=== PATIENT | male | born 1945 | race Caucasian/White ===

== ENCOUNTER 2021-05-27 17:48 | Emergency (ER) | payer MEDICARE ==
[2021-05-27 17:58] VITALS: RESP 18; TEMP 97.9
[2021-05-27] MEDS ORDERED: SODIUM CHLORIDE 0.9% 1,000 ML IV STA (18:52)
[2021-05-27 19:30] LABS: Basophils # (A) 0.1 k/uL (0-0.2); Basophils % (A) 1 %; Eosinophils # (A) 0.2 k/uL (0-0.7); Eosinophils % (A) 2 %; HCT 41.6 % (39.0-53.0); Lymphocytes # (A) 1.6 k/uL (1.0-4.8); Lymphocytes % (A) 19 %; MCH 29.3 pg (25.0-35.0); MCHC 33.6 g/dL (31.0-37.0); MCV 87.2 fL (80.0-100.0); Mean Platelet Volume 7.3; Monocytes # (A) 0.6 k/uL (0-1.0); Monocytes % (A) 7 %; Neutrophils # (A) 5.9 k/uL (1.3-7.7); Neutrophils % (A) 70 %; Platelet Count 277 k/uL (150-450); RBC 4.76 m/uL (4.30-5.90); WBC 8.3 k/uL (3.8-10.6)
[2021-05-27] MEDS ORDERED: METOCLOPRAMIDE 5 MG/ML 2 ML VIAL IVP STA (19:41)
[2021-05-27] MEDS ORDERED: MAG HYDROX/AL HYDROX/SIMETH 30 ML, HYOSCYAMINE ELIXIR 10 ML PO STA ×2 (19:41)
--- NOTE | 2021-05-27 20:16 | CT ---
EXAMINATION TYPE: CT abdomen pelvis wo con DATE OF EXAM: 05/27/2021 COMPARISON: 10/07/2014. HISTORY: Abdominal pain. CT DLP: 932.2 mGycm Automated exposure control for dose reduction was used. TECHNIQUE: Helical acquisition of images was performed from the lung bases through the pelvis. FINDINGS: LUNG BASES: Mild bibasilar opacities, compatible with atelectasis. LIVER/GB: No significant abnormality is appreciated. Cholecystectomy. PANCREAS: No significant abnormality is seen. SPLEEN: No significant abnormality is seen. ADRENALS: No significant abnormality is seen. KIDNEYS: No acute abnormality is seen. A 5.5 cm simple appearing right renal cyst in lower pole. Cody tionally 0.6 cm left renal cyst in the lower pole. FREE AIR: No free air is visualized RETROPERITONEAL ADENOPATHY: None visualized REPRODUCTIVE ORGANS: No significant abnormality is seen URINARY BLADDER: No significant abnormality is seen. PELVIC ADENOPATHY: None visualized. OSSEOUS STRUCTURES: No significant abnormality is seen. BOWEL: Nonspecific mild narrowing of the proximal sigmoid colon. No bowel obstruction, free air or f luid. OTHER: Moderate atherosclerotic disease. IMPRESSION: Nonspecific mild narrowing of the sigmoid colon, may relate to partially collapsed bowel loop. Colono scopy correlation may be obtained as indicated. Otherwise no DEFINITE ACUTE ABNORMALITY. SIMPLE RENAL CYSTS.
[2021-05-27 20:22] LABS: Albumin 3.4 g/dL (3.5-5.0); Calcium 8.7 mg/dL (8.4-10.2); Potassium 3.7 mmol/L (3.5-5.1); Total Bilirubin 0.4 mg/dL (0.2-1.3); Total Protein 5.9 g/dL (6.3-8.2)
--- NOTE | 2021-05-27 20:23 | ED ---
Abdominal Pain HPI - General Chief Complaint: Abdominal Pain Stated Complaint: abd pain Time Seen by Provider: 05/27/21 18:52 Source: patient, RN notes reviewed Mode of arrival: ambulatory Limitations: no limitations - History of Present Illness Initial Comments: 76-year-old male presents emergency Department chief complaint of upper abdominal pain. Patient's been having ongoing issues with GI issues over the last 4-6 months. Patient has seen his PCP for this Patient had a prior cholecystomy. Patient states that isn't placed on multiple medications are relief states symptoms worsened today states is actually alleviating now. Patient had diarrhea, vomiting which is been chronic. No fevers or chills. - Related Data Home Medications Medication Instructions Recorded Confirmed Glimepiride [Amaryl] 2 mg PO BID 05/12/16 05/12/16 Lansoprazole 30 mg PO DAILY 05/12/16 05/12/16 Famotidine [Pepcid] 20 mg PO BID 05/27/21 05/27/21 Hyoscyamine Sulfate [Levsin] 0.125 mg PO Q4H PRN 05/27/21 05/27/21 Pioglitazone [Actos] 45 mg PO DAILY 05/27/21 05/27/21 Pravastatin Sodium [Pravachol] 20 mg PO DAILY 05/27/21 05/27/21 Venlafaxine HCl ER [Effexor Xr] 37.5 mg PO DAILY 05/27/21 05/27/21 lisinopriL 20 mg PO DAILY 05/27/21 05/27/21 Previous Rx's Medication Instructions Recorded Pantoprazole [Protonix] 40 mg PO DAILY #30 tablet. 05/27/21 Allergies Allergy/AdvReac Type Severity Reaction Status Date / Time Iodinated Contrast Media Allergy Rash/Hives,RAPID Verified 05/27/21 21:27 HEART BEAT Penicillins Allergy Rash/Hives Verified 05/27/21 21:27 iodine AdvReac RAPID Verified 05/27/21 21:27 HEARTBEAT Review of Systems ROS Statement: Those systems with pertinent positive or pertinent negative responses have been documented in the HPI. ROS Other: All systems not noted in ROS Statement are negative. Past Medical History Past Medical History: Diabetes Mellitus Additional Past Medical History / Comment(s): ABDOMINAL PAIN AND UPPER BACK PAIN History of Any Multi-Drug Resistant Organisms: None Reported Past Surgical History: Cholecystectomy, Heart Catheterization, Tonsillectomy Additional Past Surgical History / Comment(s): COLONOSCOPY Past Anesthesia/Blood Transfusion Reactions: No Reported Reaction Additional Past Anesthesia/Blood Transfusion Reaction / Comment(s): "TOOK LONGER TO WAKE UP" Past Psychological History: Depression Smoking Status: Never smoker Past Alcohol Use History: Rare Past Drug Use History: None Reported - Past Family History Son(s) Family Medical History: Deep Vein Thrombosis (DVT) Additional Family Medical History / Comment(s): DVT -LEG General Exam Limitations: no limitations General appearance: alert, in no apparent distress Head exam: Present: atraumatic, normocephalic, normal inspection Neck exam: Present: normal inspection, full ROM. Absent: tenderness, meningismus, lymphadenopathy Respiratory exam: Present: normal lung sounds bilaterally. Absent: respiratory distress, wheezes, rales, rhonchi, stridor Cardiovascular Exam: Present: regular rate, normal rhythm, normal heart sounds. Absent: systolic murmur, diastolic murmur, rubs, gallop, clicks GI/Abdominal exam: Present: soft, tenderness (Epigastric), normal bowel sounds. Absent: distended, guarding, rebound, rigid Back exam: Absent: CVA tenderness (R), CVA tenderness (L) Neurological exam: Present: alert Course Vital Signs 05/27/21 05/27/21 05/27/21 17:55 19:12 20:49 Temperature 97.9 F Pulse Rate 83 69 67 Respiratory 18 18 18 Rate Blood Pressure 94/59 113/59 113/59 O2 Sat by Pulse 97 97 97 Oximetry Medical Decision Making - Medical Decision Making \\76-year-old presented for ongoing abdominal GI issues. Patient labs reviewed no significant abnormality, CT does not show any acute findings. Patient is scheduled see GI. Patient states he had increasing stomach pain here and recommended trying further medications patient states that he just wants to go home and follow-up. He understands risk of leaving at this time understands that testing is not complete. - Lab Data Result diagrams: 05/27/21 19:09 05/27/21 20:05 Lab Results 05/27/21 05/27/21 05/27/21 Range/Units 19:09 19:09 20:05 WBC 8.3 (3.8-10.6) k/uL RBC 4.76 (4.30-5.90) m/uL Hgb 14.0 (13.0-17.5) gm/dL Hct 41.6 (39.0-53.0) % MCV 87.2 (80.0-100.0) fL MCH 29.3 (25.0-35.0) pg MCHC 33.6 (31.0-37.0) g/dL RDW 13.0 (11.5-15.5) % Plt Count 277 (150-450) k/uL MPV 7.3 Neutrophils % 70 % Lymphocytes % 19 % Monocytes % 7 % Eosinophils % 2 % Basophils % 1 % Neutrophils # 5.9 (1.3-7.7) k/uL Lymphocytes # 1.6 (1.0-4.8) k/uL Monocytes # 0.6 (0-1.0) k/uL Eosinophils # 0.2 (0-0.7) k/uL Basophils # 0.1 (0-0.2) k/uL Sodium 142 (137-145) mmol/L Potassium 3.7 (3.5-5.1) mmol/L Chloride 110 H (98-107) mmol/L Carbon Dioxide 24 (22-30) mmol/L Anion Gap 8 mmol/L BUN 21 H (9-20) mg/dL Creatinine 1.32 H (0.66-1.25) mg/dL Est GFR (CKD-EPI)AfAm 60 (>60 ml/min/1.73 sqM) Est GFR (CKD-EPI)NonAf 52 (>60 ml/min/1.73 sqM) Glucose 139 H (74-99) mg/dL Plasma Lactic Acid Elia 1.9 (0.7-2.0) mmol/L Calcium 8.7 (8.4-10.2) mg/dL Total Bilirubin 0.4 (0.2-1.3) mg/dL AST 19 (17-59) U/L ALT 14 (4-49) U/L Alkaline Phosphatase 53 (38-126) U/L Total Protein 5.9 L (6.3-8.2) g/dL Albumin 3.4 L (3.5-5.0) g/dL Amylase 61 (30-110) U/L Lipase 151 (23-300) U/L Disposition Clinical Impression: Abdominal pain Disposition: HOME SELF-CARE Condition: Stable Instructions (If sedation given, give patient instructions): Abdominal Pain (ED) Additional Instructions: Please return to the Emergency Department if symptoms worsen or any other concerns. Prescriptions: Pantoprazole [Protonix] 40 mg PO DAILY #30 tablet.dr Is patient prescribed a controlled substance at d/c from ED?: No Referrals: Marley Stauffer MD [Primary Care Provider] - 1-2 days Aziza Bradley MD [STAFF PHYSICIAN] - 1-2 days Time of Disposition: 21:33
[2021-05-27] MEDS ORDERED: PANTOPRAZOLE 40 MG/10 ML VIAL IVP STA (21:30)
[2021-05-27 21:33] LABS: Appearance,Urine Clear (Clear); Bilirubin,Urine Negative (Negative); Blood,Urine Negative (Negative); Color,Urine Yellow; Glucose,Urine (UA) 2+ (Negative); Ketones,Urine Negative (Negative); Leukocyte Esterase,Urine Negative (Negative); Nitrite,Urine Negative (Negative); PH, Urine 5.5 (5.0-8.0); Protein,Urine Negative (Negative); Urobilinogen,Urine <2.0 mg/dL (<2.0)
[2021-05-27 21:53] VITALS: BP 112/78; PULSE 71
== END 2021-05-27 21:53 | disposition home or self-care (01) ==
LOC: EC 17:48
DX: R10.13 Epigastric pain (principal); E11.9 Type 2 diabetes mellitus without complications; F32.9 Major depressive disorder, single episode, unspecified; Z79.84 Long term (current) use of oral hypoglycemic drugs; Z88.0 Allergy status to penicillin; Z90.49 Acquired absence of other specified parts of digestive tract
CPT/HCPCS: 36415; 80053; 82150; 83605; 83690; 85025; 81003; 74176; 99284; 96374; 96375; J2765; C9113

== ENCOUNTER → 2023-08-11 | Outpatient (CLI) | payer MEDICARE ==
--- NOTE | 2023-08-11 19:51 | US ---
EXAMINATION TYPE: US kidneys/renal and bladder DATE OF EXAM: 08/11/2023 COMPARISON: CT 05/27/2021 CLINICAL INDICATION: Male, 78 years old with history of N18.31 CKD; EXAM MEASUREMENTS: Right Kidney: 10.4 x 5.5 x 6.0 cm Left Kidney: 11.4 x 5.2 x 4.1 cm Right Kidney: 5.0 x 5.8 x 5.3cm exophytic cyst from the lower pole. 1.9cm hypoechoic cyst from the me dial mid pole. No hydronephrosis. Left Kidney: 2.0cm cyst from the lateral lower pole. No hydronephrosis. Bladder: wnl Bilateral Jets seen: right jet not seen, left jet seen IMPRESSION: 1. No hydronephrosis. 2. Bilateral renal cysts measuring up to 5.8 cm on the right.
== END | disposition home or self-care (01) ==
LOC: RADUSWWP 13:58
PROVIDERS: ATTEND Internal Medicine Nephrology
DX: N18.31 Chronic kidney disease, stage 3a (principal); N28.1 Cyst of kidney, acquired
CPT/HCPCS: 76770

== ENCOUNTER → 2023-10-19 | Outpatient (CLI) | payer MEDICARE ==
--- NOTE | 2023-10-19 09:16 | US ---
EXAMINATION TYPE: US Aorta Screening DATE OF EXAM: 10/19/2023 COMPARISON: NONE CLINICAL INDICATION: Male, 78 years old with history of Z13.6 SCREEN FOR CARDIOVASC DISEASE; AAA scre ening TECHNIQUE: Multiple sonographic images of the abdominal aorta are obtained. FINDINGS: EXAM MEASUREMENTS: Abdominal Aorta: Proximal: 2.4 x 2.4 cm Mid: 2.1 x 1.8 cm Distal: 1.6 x 1.6 cm Bifurcation: .9 x 1.4 cm .7 x 1.6 cm SHAKE SAWYER NOTES: IMPRESSION: No evidence for abdominal aortic aneurysm.
== END | disposition home or self-care (01) ==
LOC: RADUSWWP 08:41
PROVIDERS: ATTEND Family Medicine
DX: Z13.6 Encounter for screening for cardiovascular disorders (principal)
CPT/HCPCS: 76706